=== PATIENT | female | born 1985 | race Caucasian/White ===

== ENCOUNTER 2020-04-06 21:38 | Emergency (ER) | payer MEDICARE, MEDICAID ==
--- NOTE | 2020-04-06 22:32 | EDM.PDOC ---
ED HPI GENERAL MEDICAL PROBLEM - General Chief Complaint: General Stated Complaint: PAIN IN BACK RT SIDE OF HEAD Time Seen by Provider: 04/06/20 22:24 Source of Information: Reports: Patient, RN Notes Reviewed History Limitations: Reports: No Limitations - History of Present Illness INITIAL COMMENTS - FREE TEXT/NARRATIVE: 34-year-old female presents emergency department a complaint of headache, she does have a history of migraines she states this is different than her migraines in the past she has no nausea no photophobia no phonophobia she describes this as a sharp stabbing headache back of her head right side started yesterday she has not gotten any relief from naproxen Right Head Pain Score (Numeric/FACES): 8 - Related Data Allergies Allergy/AdvReac Type Severity Reaction Status Date / Time adhesive tape Allergy Rash Verified 04/06/20 22:08 gabapentin Allergy Facial Verified 04/06/20 22:08 Swelling oxycodone Allergy Headache Verified 04/06/20 22:08 pregabalin [From Lyrica] Allergy Depression Verified 04/06/20 22:08 soy Allergy Hives Verified 04/06/20 22:08 tramadol Allergy Headache Verified 04/06/20 22:08 Home Meds: Home Meds Ascorbic Acid [Vitamin C] 1,000 mg PO BID 04/06/20 [History] Cholecalciferol (Vitamin D3) [Vitamin D3] 2,000 unit PO DAILY 04/06/20 [History] FLUoxetine HCl [Fluoxetine] 40 mg PO DAILY 04/06/20 [History] Magnesium Oxide 500 mg PO DAILY 04/06/20 [History] Omeprazole 20 mg PO ONETIME 04/06/20 [History] Phentermine HCl 15 mg PO DAILY 04/06/20 [History] Topiramate 50 mg PO BID 04/06/20 [History] Past Medical History HEENT History: Reports: Impaired Vision Genitourinary History: Reports: Renal Calculus 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: Musculoskeletal History: Reports: Back Pain, Chronic, Neck Pain, Chronic Neurological History: Reports: Migraines Psychiatric History: Reports: Anxiety, Depression Endocrine/Metabolic History: Reports: Obesity/BMI 30+ - Past Surgical History Head Surgeries/Procedures: Reports: None HEENT Surgical History: Reports: Tonsillectomy GI Surgical History: Reports: Cholecystectomy Female Surgical History: Reports: D&C Endocrine Surgical History: Reports: None Neurological Surgical History: Reports: Lumbar Spine, Spinal Fusion Musculoskeletal Surgical History: Reports: Shoulder Surgery Dermatological Surgical History: Reports: None Social & Family History - Tobacco Use Smoking Status *Q: Former Smoker Used Tobacco, but Quit: Yes Month/Year Tobacco Last Used: 2017 Second Hand Smoke Exposure: No - Caffeine Use Caffeine Use: Reports: Energy Drinks, Soda, Tea - Recreational Drug Use Recreational Drug Use: No - Living Situation & Occupation Living situation: Reports: Single, with Family (lives with 15 month old son in [place], [place].) Occupation: Disabled ED ROS GENERAL - Review of Systems Review Of Systems: See Below Constitutional: Denies: Fever, Chills HEENT: Denies: Ear Pain, Eye Pain Respiratory: Reports: No Symptoms Cardiovascular: Reports: No Symptoms GI/Abdominal: Reports: No Symptoms Neurological: Reports: Headache ED EXAM, GENERAL - Physical Exam Exam: See Below Exam Limited By: No Limitations General Appearance: Alert, WD/WN, No Apparent Distress Eye Exam: Bilateral Eye: EOMI, Normal Fundi, Normal Inspection, PERRL Respiratory/Chest: No Respiratory Distress Course - Vital Signs Last Recorded V/S: Last Vital Signs Temp 97.7 F 04/06/20 22:10 Pulse 56 L 04/07/20 01:22 Resp 14 04/07/20 01:22 BP 123/77 04/07/20 01:22 Pulse Ox 97 04/07/20 01:22 - Orders/Labs/Meds Orders: Active Orders 24 hr Category Date Time Status Peripheral IV Care [RC] . DIRECTED Care 04/06/20 23:40 Active Sodium Chloride 0.9% [Saline Flush] Med 04/06/20 23:40 Active 10 ml FLUSH ASDIRECTED PRN Peripheral IV Insertion Adult [OM.PC] Urgent Oth 04/06/20 23:39 Ordered Medication Orders Sodium Chloride (Saline Flush) 10 ml FLUSH ASDIRECTED PRN PRN Reason: Keep Vein Open Last Admin: 04/07/20 00:09 Dose: 10 ml Meds: Medications Generic Name Dose Route Start Last Admin Trade Name Freq PRN Reason Stop Dose Admin Sodium Chloride 10 ml 04/06/20 23:40 04/07/20 00:09 Saline Flush FLUSH 10 ml ASDIRECTED PRN Administration Keep Vein Open Discontinued Medications Generic Name Dose Route Start Last Admin Trade Name Freq PRN Reason Stop Dose Admin Dexamethasone 4 mg 04/07/20 01:09 04/07/20 01:17 Dexamethasone IVPUSH 04/07/20 01:10 4 mg ONETIME ONE Administration Diphenhydramine HCl 50 mg 04/06/20 23:40 04/07/20 00:09 Benadryl IVPUSH 04/06/20 23:41 50 mg ONETIME ONE Administration Haloperidol Lactate 10 mg 04/07/20 01:09 04/07/20 01:16 Haldol IVPUSH 04/07/20 01:10 10 mg ONETIME ONE Administration Lactated Ringer's 1,000 mls @ 999 mls/hr 04/06/20 23:39 04/07/20 00:07 Ringers, Lactated IV 04/07/20 00:39 999 mls/hr BOLUS ONE Administration Lactated Ringer's 1,000 mls @ 999 mls/hr 04/07/20 01:08 04/07/20 01:16 Ringers, Lactated IV 04/07/20 02:08 999 mls/hr BOLUS ONE Administration Ketorolac Tromethamine 30 mg 04/06/20 23:39 04/07/20 00:08 Toradol IVPUSH 04/06/20 23:40 30 mg ONETIME ONE Administration Prochlorperazine Edisylate 5 mg 04/06/20 23:40 04/07/20 00:08 Compazine IVPUSH 04/06/20 23:41 5 mg ONETIME ONE Administration Departure - Departure Time of Disposition: 02:13 Disposition: Home, Self-Care 01 Condition: Fair Clinical Impression: Headache Qualifiers: Headache type: unspecified Headache chronicity pattern: acute headache Intractability: not intractable Qualified Code(s): R51 - Headache - Discharge Information Instructions: General Headache Without Cause Referrals: PCP,None [Primary Care Provider] - Forms: ED Department Discharge Additional Instructions: Continue with regular medications, please followup with your primary care provider in 3-5 days if not better, please call return to the emergency department with worsening of symptoms. Sepsis Event Note - Evaluation Sepsis Screening Result: No Definite Risk - Focused Exam Vital Signs: Vital Signs Temp Pulse Resp BP Pulse Ox 04/07/20 01:22 56 L 14 123/77 97 04/07/20 00:52 49 L 15 135/82 100 05/28/20 00:13 60 14 143/81 H 100 04/06/20 22:10 97.7 F 57 L 16 133/83 100 04/06/20 21:56 97.7 F 57 L 16 133/83 100 Date Exam was Performed: 04/07/20 Time Exam was Performed: 02:11 - My Orders Last 24 Hours: My Active Orders 04/06/20 23:39 Peripheral IV Insertion Adult [OM.PC] Urgent 04/06/20 23:40 Peripheral IV Care [RC] . DIRECTED Sodium Chloride 0.9% [Saline Flush] 10 ml FLUSH ASDIRECTED PRN - Assessment/Plan Last 24 Hours: My Active Orders 04/06/20 23:39 Peripheral IV Insertion Adult [OM.PC] Urgent 04/06/20 23:40 Peripheral IV Care [RC] . DIRECTED Sodium Chloride 0.9% [Saline Flush] 10 ml FLUSH ASDIRECTED PRN Plan: Assessment Acuity = acute Site and laterality = headache Etiology = unknown Manifestations = none Location of injury = Home Lab values = CT scan of the head shows no acute process Plan Had 50% improvement combination Toradol, Compazine, Haldol, Benadryl and dexamethasone with 2 L of fluid follow-up primary care 3 to 5 days if not better This note was dictated using [employer] voice recognition software please call with any questions on syntax or grammar.
--- NOTE | 2020-04-06 23:34 | CRLCT ---
INDICATION: New stabbing headache. COMPARISON: None. TECHNIQUE: CT of the head without IV contrast. FINDINGS: No intracranial hemorrhage, mass effect, or evidence of acute infarct. No midline shift. No abnormal extra-axial fluid collections. Normal caliber ventricular system. The visualized paranasal sinuses and mastoid air cells are clear. No acute fracture. Soft tissues are unremarkable. IMPRESSION: : No acute intracranial findings. Please note that all CT scans at this facility use dose modulation, iterative reconstruction, and/or weight-based dosing when appropriate to reduce radiation dose to as low as reasonably achievable. Dictated by Mandy Damon MD @ Apr 06 2020 11:27PM Signed by Dr. Mandy Damon @ Apr 06 2020 11:32PM
[2020-04-06] MEDS ORDERED: Lactated Ringers 1,000 ML IV ONE (23:39)
[2020-04-06] MEDS ORDERED: Ketorolac 30 MG/ML SDV IVPUSH ONE (23:39)
[2020-04-06] MEDS ORDERED: diphenhydrAMINE 50 MG/ML SDV IVPUSH ONE (23:40)
[2020-04-06] MEDS ORDERED: Sodium Chloride 0.9% 10 ML Syringe FLUSH PRN (23:40)
[2020-04-06] MEDS ORDERED: Prochlorperazine 10 MG/2 ML SDV IVPUSH ONE (23:40)
[2020-04-07] MEDS ORDERED: Lactated Ringers 1,000 ML IV ONE (01:08)
[2020-04-07] MEDS ORDERED: Dexamethasone 4 MG/ML SDV IVPUSH ONE (01:09)
[2020-04-07] MEDS ORDERED: Haloperidol Lactate 5 MG/ML SDV IVPUSH ONE (01:09)
== END 2020-04-07 02:26 | disposition home or self-care (01) ==
LOC: JP.ED 21:38
DX: R51 Headache (principal); Z91.048 Other nonmedicinal substance allergy status; Z88.5 Allergy status to narcotic agent; Z91.018 Allergy to other foods; Z88.8 Allergy status to other drugs, medicaments and biological substances; F41.9 Anxiety disorder, unspecified; F32.9 Major depressive disorder, single episode, unspecified; E66.9 Obesity, unspecified; Z68.30 Body mass index [BMI] 30.0-30.9, adult; Z87.891 Personal history of nicotine dependence
CPT/HCPCS: 70450; 96374; 96375; 99284; J0780; J1100; J1200; J1630; J1885; J7120

== ENCOUNTER 2020-04-09 18:15 | Emergency (ER) | payer MEDICARE, MEDICAID ==
[2020-04-09] MEDS ORDERED: Diazepam 5 MG Tab PO ONE (18:52)
--- NOTE | 2020-04-09 18:53 | EDM.PDOC ---
ED HPI GENERAL MEDICAL PROBLEM - General Chief Complaint: ENT Problem Stated Complaint: PAIN RIGHT SIDE OF HEAD Time Seen by Provider: 04/09/20 18:32 Source of Information: Reports: Patient, RN Notes Reviewed History Limitations: Reports: No Limitations - History of Present Illness INITIAL COMMENTS - FREE TEXT/NARRATIVE: Cee presents today with complaints of headache, right ear pain, right head pain and dizziness. She reports increased pain to right ear and increase of dizziness since last ER visit on 04/06/2020. She denies any injury or trauma to the head or ear. She denies fever, chills, nausea, vomiting or other concerns. Right Ear Pain Score (Numeric/FACES): 9 - Related Data Allergies Allergy/AdvReac Type Severity Reaction Status Date / Time adhesive tape Allergy Rash Verified 04/06/20 22:08 gabapentin Allergy Facial Verified 04/06/20 22:08 Swelling oxycodone Allergy Headache Verified 04/06/20 22:08 pregabalin [From Lyrica] Allergy Depression Verified 04/06/20 22:08 soy Allergy Hives Verified 04/06/20 22:08 tramadol Allergy Headache Verified 04/06/20 22:08 Home Meds: Home Meds Ascorbic Acid [Vitamin C] 1,000 mg PO BID 04/06/20 [History] Cholecalciferol (Vitamin D3) [Vitamin D3] 2,000 unit PO DAILY 04/06/20 [History] FLUoxetine HCl [Fluoxetine] 40 mg PO DAILY 04/06/20 [History] Magnesium Oxide 500 mg PO DAILY 04/06/20 [History] Omeprazole 20 mg PO ONETIME 04/06/20 [History] Phentermine HCl 15 mg PO DAILY 04/06/20 [History] Topiramate 50 mg PO BID 04/06/20 [History] Past Medical History HEENT History: Reports: Impaired Vision Gastrointestinal History: Reports: None Genitourinary History: Reports: Renal Calculus 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: Musculoskeletal History: Reports: Back Pain, Chronic, Neck Pain, Chronic Neurological History: Reports: Migraines Psychiatric History: Reports: Anxiety, Depression Endocrine/Metabolic History: Reports: Obesity/BMI 30+ - Past Surgical History Head Surgeries/Procedures: Reports: None HEENT Surgical History: Reports: Tonsillectomy GI Surgical History: Reports: Cholecystectomy Female Surgical History: Reports: D&C Endocrine Surgical History: Reports: None Neurological Surgical History: Reports: Lumbar Spine, Spinal Fusion Musculoskeletal Surgical History: Reports: Shoulder Surgery Dermatological Surgical History: Reports: None Social & Family History - Tobacco Use Smoking Status *Q: Never Smoker - Caffeine Use Caffeine Use: Reports: Soda - Recreational Drug Use Recreational Drug Use: No - Living Situation & Occupation Living situation: Reports: Single, with Family (lives with 15 month old son in [place], [place].) Occupation: Disabled ED ROS ENT - Review of Systems Review Of Systems: See Below Constitutional: Reports: No Symptoms HEENT: Reports: Ear Pain, Vertigo, Other (Pain to right ear, right side of neck and posterior head. ). Denies: Dental Pain, Ear Discharge, Hearing Loss, Nose Pain, Sinus Problem, Throat Pain, Throat Swelling, Vision Change Respiratory: Reports: No Symptoms Cardiovascular: Reports: No Symptoms Endocrine: Reports: No Symptoms GI/Abdominal: Reports: No Symptoms : Reports: No Symptoms Musculoskeletal: Reports: No Symptoms Skin: Reports: No Symptoms Neurological: Reports: Dizziness, Headache, Other (dizziness with change in position or turning head) Psychiatric: Reports: No Symptoms Hematologic/Lymphatic: Reports: No Symptoms ED EXAM, ENT - Physical Exam Exam: See Below Exam Limited By: No Limitations General Appearance: Alert, WD/WN, No Apparent Distress Eye Exam: Bilateral Eye: EOMI, Normal Inspection, Nystagmus (slight with change in position), PERRL Ears: Hearing Grossly Normal, Auricular Tenderness, TM Bulging, TM Dullness, TM Erythema, TM Fluid, Other (Right TM bulging, dull effusion present, erythema. Left TM normal. ). No: Mastoid Tenderness, Canal Blood, Canal Swelling Nose: Normal Inspection, Normal Mucousa, No Blood Mouth/Throat: Normal Inspection, Normal Gums, Normal Lips, Normal Oropharynx. No: Dental Pain, Oral Ulcers, Throat Pain, Tonsillar Erythema, Tonsillar Exudates, Uvular Deviation, Uvular Edema Head: Atraumatic, Normocephalic Neck: Normal Inspection, Supple, Full Range of Motion, Other (tenderness to right neck near right ear). No: Limited Range of Motion, Lymphadenopathy (R), Lymphadenopathy (L) Respiratory/Chest: No Respiratory Distress, Lungs Clear, Normal Breath Sounds, No Accessory Muscle Use, Chest Non-Tender Cardiovascular: Normal Peripheral Pulses, Regular Rate, Rhythm, No Edema, No Gallop, No Murmur, No Rub Back: Normal Inspection, Full Range of Motion. No: CVA Tenderness (R), CVA Tenderness (L) Extremities: Normal Inspection, Normal Range of Motion, Non-Tender, No Pedal Edema, Normal Capillary Refill Neurological: Alert, Oriented, CN II-XII Intact, Normal Cognition, Normal Gait, Normal Reflexes, No Motor/Sensory Deficits Psychiatric: Normal Affect, Normal Mood Skin: Warm, Dry, Intact, Normal Color, No Rash Course - Vital Signs Last Recorded V/S: Last Vital Signs Temp 36.2 C 04/09/20 18:29 Pulse 66 04/09/20 19:29 Resp 16 04/09/20 18:29 BP 122/76 04/09/20 19:29 Pulse Ox 98 04/09/20 19:29 - Orders/Labs/Meds Meds: Medications Discontinued Medications Generic Name Dose Route Start Last Admin Trade Name Humphreyq PRN Reason Stop Dose Admin Diazepam 5 mg 04/09/20 18:52 04/09/20 18:56 Valium. PO 04/09/20 18:53 5 mg ONETIME ONE Administration Patient reports improvement after diazepam. Departure - Departure Time of Disposition: 19:39 Disposition: Home, Self-Care 01 Condition: Good Clinical Impression: Otitis media of right ear, Vertigo - Discharge Information *PRESCRIPTION DRUG MONITORING PROGRAM REVIEWED*: Not Applicable *COPY OF PRESCRIPTION DRUG MONITORING REPORT IN PATIENT JADEN: Not Applicable Instructions: Otitis Media, Adult, [id number], Dizziness Referrals: PCP,None [Primary Care Provider] - Forms: ED Department Discharge Additional Instructions: Stay hydrated by drinking plenty of fluid. Take amoxicillin/clavulanate twice per day for 10 days for ear infection. Take meclizine 25 mg three times a day for dizziness. Follow up with primary in 7 to 10 days for recheck Return for worsening, issues or concerns. Sepsis Event Note - Evaluation Sepsis Screening Result: No Definite Risk - Focused Exam Vital Signs: Vital Signs Temp Pulse Resp BP Pulse Ox 04/09/20 19:29 66 122/76 98 04/09/20 18:29 36.2 C 65 16 133/77 99 04/09/20 18:25 36.2 C 65 16 133/77 99 Date Exam was Performed: 04/09/20 Time Exam was Performed: 21:39 - Assessment/Plan Assessment:: Otitis media right Vertigo Plan: Stay hydrated by drinking plenty of fluid. Take amoxicillin/clavulanate twice per day for 10 days for ear infection. Take meclizine 25 mg three times a day for dizziness. Follow up with primary in 7 to 10 days for recheck Return for worsening, issues or concerns.
== END 2020-04-09 19:39 | disposition home or self-care (01) ==
LOC: JP.ED 18:15
DX: H66.91 Otitis media, unspecified, right ear (principal); F41.9 Anxiety disorder, unspecified; F32.9 Major depressive disorder, single episode, unspecified; G43.909 Migraine, unspecified, not intractable, without status migrainosus; E66.9 Obesity, unspecified; Z68.30 Body mass index [BMI] 30.0-30.9, adult; Z91.048 Other nonmedicinal substance allergy status; Z88.8 Allergy status to other drugs, medicaments and biological substances; Z91.018 Allergy to other foods; Z88.5 Allergy status to narcotic agent; Z79.899 Other long term (current) drug therapy
CPT/HCPCS: 99283; A9270

== ENCOUNTER 2020-05-25 17:53 | Emergency (ER) | payer MEDICARE, MEDICAID ==
--- NOTE | 2020-05-25 18:53 | EDM.PDOC ---
ED HPI GENERAL MEDICAL PROBLEM - General Chief Complaint: Chest Pain Stated Complaint: PAIN IN RIBS Time Seen by Provider: 05/25/20 18:40 Source of Information: Reports: Patient History Limitations: Reports: No Limitations - History of Present Illness INITIAL COMMENTS - FREE TEXT/NARRATIVE: 34-year-old female who fell on Saturday, 4 days ago striking the left side of her chest wall. She is been having significant pain with breathing since that time but seems worse today so she wanted to check. Denies abdominal pain, no head or neck injury. Pain is localized to the left lateral chest. She denies any shortness of breath, but does have marked pain with breathing. Onset: Sudden Duration: Day(s): (4 days ago) Location: Reports: Chest (Left lateral chest wall) Worsens with: Reports: Breathing, Movement Associated Symptoms: Reports: No Other Symptoms - Related Data Allergies Allergy/AdvReac Type Severity Reaction Status Date / Time adhesive tape Allergy Rash Verified 04/06/20 22:08 duloxetine [From Cymbalta] Allergy Cannot Verified 05/25/20 18:31 Remember gabapentin Allergy Facial Verified 04/06/20 22:08 Swelling oxycodone Allergy Headache Verified 04/06/20 22:08 pregabalin [From Lyrica] Allergy Depression Verified 04/06/20 22:08 soy Allergy Hives Verified 04/06/20 22:08 tramadol Allergy Headache Verified 04/06/20 22:08 Home Meds: Home Meds Ascorbic Acid [Vitamin C] 1,000 mg PO BID 04/06/20 [History] Cholecalciferol (Vitamin D3) [Vitamin D3] 2,000 unit PO DAILY 04/06/20 [History] Magnesium Oxide 500 mg PO DAILY 04/06/20 [History] Omeprazole 20 mg PO ONETIME 04/06/20 [History] Phentermine HCl 15 mg PO DAILY 04/06/20 [History] Topiramate 50 mg PO BID 04/06/20 [History] Calcium Citrate/Vitamin D2 [Samuel-Citrate Plus Vitamin D Tab] 1 tab PO DAILY 05/25/20 [History] busPIRone [Buspar] 1 mg PO BID 05/25/20 [History] Past Medical History HEENT History: Reports: Impaired Vision Cardiovascular History: Reports: Other (See Below) Other Cardiovascular History: positional orthostatic tachycardic syndrome Gastrointestinal History: Reports: None Genitourinary History: Reports: Renal Calculus 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: Musculoskeletal History: Reports: Back Pain, Chronic, Neck Pain, Chronic Neurological History: Reports: Migraines Psychiatric History: Reports: Anxiety, Depression Endocrine/Metabolic History: Reports: Obesity/BMI 30+ - Past Surgical History Head Surgeries/Procedures: Reports: None HEENT Surgical History: Reports: Tonsillectomy GI Surgical History: Reports: Cholecystectomy Female Surgical History: Reports: D&C, Tubal Ligation Endocrine Surgical History: Reports: None Neurological Surgical History: Reports: Lumbar Spine, Spinal Fusion Musculoskeletal Surgical History: Reports: Shoulder Surgery Dermatological Surgical History: Reports: None Social & Family History - Tobacco Use Smoking Status *Q: Former Smoker Years of Tobacco use: 15 Used Tobacco, but Quit: Yes Month/Year Tobacco Last Used: 11/16/2017 - Caffeine Use Caffeine Use: Reports: Coffee, Soda - Recreational Drug Use Recreational Drug Use: No - Living Situation & Occupation Living situation: Reports: Single, with Family (lives with 15 month old son in [place], [place].) Occupation: Disabled ED ROS GENERAL - Review of Systems Review Of Systems: See Below Constitutional: Denies: Fever, Chills Respiratory: Reports: Pleuritic Chest Pain. Denies: Shortness of Breath Cardiovascular: Reports: No Symptoms GI/Abdominal: Reports: No Symptoms Skin: Denies: Bruising Neurological: Reports: No Symptoms Psychiatric: Reports: No Symptoms ED EXAM, GENERAL - Physical Exam Exam: See Below Exam Limited By: No Limitations General Appearance: Alert, Mild Distress (Patient does look fairly uncomfortable) Head: Atraumatic Neck: Non-Tender Respiratory/Chest: Lungs Clear, Other (Significant left lateral chest wall tenderness to palpation but no crepitus felt) Cardiovascular: Regular Rate, Rhythm GI/Abdominal: Soft, Non-Tender Neurological: Alert, Oriented Psychiatric: Normal Affect, Normal Mood Skin Exam: Warm, Dry Course - Vital Signs Last Recorded V/S: Last Vital Signs Temp 97.9 F 05/25/20 18:45 Pulse 83 05/25/20 18:45 Resp 18 05/25/20 18:45 BP 109/80 05/25/20 18:45 Pulse Ox 95 05/25/20 18:45 - Orders/Labs/Meds Orders: Active Orders 24 hr Category Date Time Status Chest 2V [CR] Routine Exams 05/25/20 18:50 Taken - Re-Assessments/Exams Free Text/Narrative Re-Assessment/Exam: 05/25/20 18:57 A 2 view chest x-ray was ordered. 05/25/20 19:23 2 view chest x-ray is normal. 05/25/20 19:35 Explained the patient that her chest x-ray is normal, she was given 6 hydrocodone to help with pain control but needs to increase activity as tolerated. She will not take anti-inflammatories because she bruises easily. She should recheck with her primary provider in 3 to 4 days if not improving satisfactorily, or return sooner if worsening or concerns. Departure - Departure Time of Disposition: 20:00 Disposition: Home, Self-Care 01 Clinical Impression: Contusion of left chest wall - Discharge Information Instructions: Contusion, [id number] Referrals: PCP,None [Primary Care Provider] - Forms: ED Department Discharge Care Plan Goals: I would recommend a regular dose of naproxen for pain and add stronger pain medications as needed. Increase activity as tolerated and recheck in 2 to 3 days if not improving satisfactorily. Sepsis Event Note (ED) - Evaluation Sepsis Screening Result: No Definite Risk - Focused Exam Vital Signs: Vital Signs Temp Pulse Resp BP Pulse Ox 05/25/20 18:45 97.9 F 83 18 109/80 95 05/25/20 18:15 97.9 F 96 18 112/82 98 - My Orders Last 24 Hours: My Active Orders 05/25/20 18:50 Chest 2V [CR] Routine - Assessment/Plan Last 24 Hours: My Active Orders 05/25/20 18:50 Chest 2V [CR] Routine
--- NOTE | 2020-05-26 08:58 | CR ---
CHEST: 2 view CLINICAL HISTORY:Dyspnea COMPARISON:None FINDINGS: The heart size, pulmonary vascularity and hilar structures are normal. No infiltrate effusion or pneumothorax is seen. IMPRESSION: No acute cardiopulmonary process.
== END 2020-05-25 20:01 | disposition home or self-care (01) ==
LOC: JP.ED 17:53
DX: S20.212A Contusion of left front wall of thorax, initial encounter (principal); F41.9 Anxiety disorder, unspecified; E66.9 Obesity, unspecified; Z68.28 Body mass index [BMI] 28.0-28.9, adult; Z88.8 Allergy status to other drugs, medicaments and biological substances; Z91.048 Other nonmedicinal substance allergy status; Z88.5 Allergy status to narcotic agent; Z91.09 Other allergy status, other than to drugs and biological substances; Z87.891 Personal history of nicotine dependence; W22.8XXA Striking against or struck by other objects, initial encounter
CPT/HCPCS: 71046; 71046-26; 99284-25

== ENCOUNTER 2020-06-01 17:53 | Emergency (ER) | payer MEDICARE, MEDICAID ==
[2020-06-01] MEDS ORDERED: Ondansetron 4 MG Tab.DIS PO ONE (18:50)
--- NOTE | 2020-06-01 19:05 | EDM.PDOC ---
ED HPI GENERAL MEDICAL PROBLEM - General Chief Complaint: Chest Pain Stated Complaint: CHEST PAIN Time Seen by Provider: 06/01/20 18:40 Source of Information: Reports: Patient, Old Records, RN, RN Notes Reviewed History Limitations: Reports: No Limitations - History of Present Illness INITIAL COMMENTS - FREE TEXT/NARRATIVE: Pt arrived private vehicle with young son. New complaints of right upper chest pain (above right breast) while driving to town for groceries. Indicates hurts with and without breathing. Pain 5/10. Pt indicates is taking a new medication (Florinef) for POTS. Started new medication yesterday am. Denies trauma, fall, or injury. Denies radiation to R arm, jaw, or diaphoresis. Pt is able to provide H&P and answer in full sentences. Onset: Today Onset Date: 06/01/20 Onset Time: 18:00 Duration: Hour(s):, Constant Location: Reports: Chest Quality: Reports: Ache, Pressure Severity: Moderate Improves with: Reports: None Worsens with: Reports: Breathing, Movement Associated Symptoms: Reports: Nausea/Vomiting Chest Pain Score (Numeric/FACES): 5 - Related Data Allergies Allergy/AdvReac Type Severity Reaction Status Date / Time adhesive tape Allergy Rash Verified 06/01/20 18:20 duloxetine [From Cymbalta] Allergy Cannot Verified 06/01/20 18:20 Remember gabapentin Allergy Facial Verified 06/01/20 18:20 Swelling oxycodone Allergy Headache Verified 06/01/20 18:20 pregabalin [From Lyrica] Allergy Depression Verified 06/01/20 18:20 soy Allergy Hives Verified 06/01/20 18:20 tramadol Allergy Headache Verified 06/01/20 18:20 Home Meds: Home Meds Ascorbic Acid [Vitamin C] 1,000 mg PO BID 04/06/20 [History] Cholecalciferol (Vitamin D3) [Vitamin D3] 2,000 unit PO DAILY 04/06/20 [History] Magnesium Oxide 500 mg PO DAILY 04/06/20 [History] Omeprazole 20 mg PO ONETIME 04/06/20 [History] Phentermine HCl 15 mg PO DAILY 04/06/20 [History] Topiramate 50 mg PO BID 04/06/20 [History] Calcium Citrate/Vitamin D2 [Samuel-Citrate Plus Vitamin D Tab] 1 tab PO DAILY 05/25/20 [History] busPIRone [Buspar] 10 mg PO BID 05/25/20 [History] Fludrocortisone [Florinef] 0.1 mg PO DAILY 06/01/20 [History] Hydrocodone/Acetaminophen [Hydrocodon-Acetaminophen 5-325] 1 tab PO ASDIRECTED 06/01/20 [History] Past Medical History HEENT History: Reports: Impaired Vision Cardiovascular History: Reports: Other (See Below) Other Cardiovascular History: positional orthostatic tachycardic syndrome Gastrointestinal History: Reports: None Genitourinary History: Reports: Renal Calculus 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: Musculoskeletal History: Reports: Back Pain, Chronic, Neck Pain, Chronic Neurological History: Reports: Migraines Psychiatric History: Reports: Anxiety, Depression Endocrine/Metabolic History: Reports: Obesity/BMI 30+ - Past Surgical History Head Surgeries/Procedures: Reports: None HEENT Surgical History: Reports: Tonsillectomy GI Surgical History: Reports: Cholecystectomy Female Surgical History: Reports: D&C, Tubal Ligation Neurological Surgical History: Reports: Lumbar Spine, Spinal Fusion Musculoskeletal Surgical History: Reports: Shoulder Surgery Social & Family History - Tobacco Use Smoking Status *Q: Never Smoker - Caffeine Use Caffeine Use: Reports: None - Recreational Drug Use Recreational Drug Use: No - Living Situation & Occupation Living situation: Reports: Single, with Family (lives with 15 month old son in [place], [place].) Occupation: Disabled ED ROS GENERAL - Review of Systems Review Of Systems: See Below Constitutional: Reports: No Symptoms HEENT: Reports: No Symptoms Respiratory: Reports: Pleuritic Chest Pain (R upper chest ) Cardiovascular: Reports: No Symptoms Endocrine: Reports: No Symptoms GI/Abdominal: Reports: No Symptoms : Reports: No Symptoms Musculoskeletal: Reports: No Symptoms Skin: Reports: No Symptoms Neurological: Reports: No Symptoms Psychiatric: Reports: Anxiety Hematologic/Lymphatic: Reports: No Symptoms Immunologic: Reports: No Symptoms ED EXAM, GENERAL - Physical Exam Exam: See Below Exam Limited By: No Limitations General Appearance: Alert, WD/WN, Anxious, Mild Distress (Anxious ) Head: Normocephalic Neck: Normal Inspection Respiratory/Chest: Normal Breath Sounds, No Accessory Muscle Use, Other (Chest wall pain) Cardiovascular: Normal Peripheral Pulses, Regular Rate, Rhythm, No Edema, No Gallop, No Murmur, No Rub, Other (Chest wall pain ) Peripheral Pulses: 2+: Radial (L), Radial (R), Dorsalis Pedis (L), Dorsalis Pedis (R) GI/Abdominal: Normal Bowel Sounds, Soft, Non-Tender, No Organomegaly, No Disten tion (Karen out), Other (Nausea. No vomiting ) (Female) Exam: Deferred Rectal (Female) Exam: Deferred Back Exam: Normal Inspection, Full Range of Motion Extremities: Normal Inspection, Normal Range of Motion, Normal Capillary Refill Neurological: Alert, Oriented, CN II-XII Intact, Normal Cognition Psychiatric: Anxious Skin Exam: Warm, Dry, Intact, Normal Color, No Rash Lymphatic: No Adenopathy EKG INTERPRETATION EKG Date: 06/01/20 Rhythm: NSR Rate (Beats/Min): 52 Course - Vital Signs Last Recorded V/S: Last Vital Signs Temp 36.0 C L 06/01/20 18:19 Pulse 50 L 06/01/20 19:25 Resp 13 06/01/20 19:25 BP 109/62 06/01/20 19:25 Pulse Ox 98 06/01/20 19:25 - Orders/Labs/Meds Orders: Active Orders 24 hr Category Date Time Status EKG Documentation Completion [RC] ASDIRECTED Care 06/01/20 17:55 Active Chest 2V [CR] Stat Exams 06/01/20 18:51 Taken EKG 12 Lead [EK] Routine Ther 06/01/20 17:54 Ordered Labs: Laboratory Tests 06/01/20 06/01/20 06/01/20 Range/Units 19:02 19:02 19:02 WBC 6.5 (4.5-11.0) K/uL RBC 3.99 (3.30-5.50) M/uL Hgb 12.1 (12.0-15.0) g/dL Hct 36.1 (36.0-48.0) % MCV 91 (80-98) fL MCH 30 (27-31) pg MCHC 34 (32-36) % Plt Count 221 (150-400) K/uL Neut % (Auto) 56 (36-66) % Lymph % (Auto) 34 (24-44) % [place] % (Auto) 7 H (2-6) % Eos % (Auto) 2 (2-4) % Baso % (Auto) 0 (0-1) % D-Dimer, Quantitative 294 (0.0-400.0) ng/mL Sodium 146 (140-148) mmol/L Potassium 3.2 L (3.6-5.2) mmol/L Chloride 111 H (100-108) mmol/L Carbon Dioxide 25 (21-32) mmol/L Anion Gap 13.2 (5.0-14.0) mmol/L BUN 8 (7-18) mg/dL Creatinine 1.0 (0.6-1.0) mg/dL Est Cr Clr Drug Dosing 72.68 mL/min Estimated GFR (MDRD) > 60 (>60) Glucose 89 (74-106) mg/dL Calcium 8.4 L (8.5-10.1) mg/dL Total Bilirubin 0.6 (0.2-1.0) mg/dL AST 12 L (15-37) U/L ALT 15 (12-78) U/L Alkaline Phosphatase 67 (46-116) U/L Troponin I < 0.017 (0.000-0.056) ng/mL Total Protein 5.7 L (6.4-8.2) g/dL Albumin 3.4 (3.4-5.0) g/dL Globulin 2.3 (2.3-3.5) g/dL Albumin/Globulin Ratio 1.5 (1.2-2.2) Meds: Medications Discontinued Medications Generic Name Dose Route Start Last Admin Trade Name Freq PRN Reason Stop Dose Admin Ondansetron HCl 4 mg 06/01/20 18:50 06/01/20 19:00 Zofran Odt PO 06/01/20 18:51 4 mg ONETIME ONE Administration Potassium Chloride 40 meq 06/01/20 19:39 Klor-Con M20 PO 06/01/20 19:40 ONETIME ONE - Re-Assessments/Exams Free Text/Narrative Re-Assessment/Exam: 06/01/20 19:08 Pt examined Orders for dx and meds placed EKG WNL 06/01/20 19:41 All labs and imaging reviewed. Will order 40 mEq PO KCL for 3.2. All other is neg. Prob f/u with pcp re: mally Departure - Departure Time of Disposition: 19:42 Disposition: Home, Self-Care 01 Condition: Good Clinical Impression: Pleuritic chest pain Instructions: Nonspecific Chest Pain, Adult, [id number], Pain Without a Known Cause Referrals: PCP,None [Primary Care Provider] - Forms: ED Department Discharge Additional Instructions: Please follow up with your provider in the morning regarding the medication you were started on yesterday. I would suggest not taking the medication in the morning until you speak with your doctor based on the possible symptomatology or reaction to the keith medication. . If your pain worsens or you develop shortness of breath, fever, chills, nausea, or vomiting, please return to the ER or call your provider. Sepsis Event Note (ED) - Evaluation Sepsis Screening Result: No Definite Risk - Focused Exam Vital Signs: Vital Signs Temp Pulse Resp BP Pulse Ox 06/01/20 19:25 50 L 13 109/62 98 06/01/20 18:44 50 L 106/61 06/01/20 18:19 36.0 C L 62 20 121/62 99 06/01/20 18:07 36.0 C L 62 20 121/62 99 - Problem List & Annotations (1) Pleuritic chest pain SNOMED Code(s): 9482097 Code(s): R07.81 - PLEURODYNIA Status: Acute Priority: Medium Current Visit: Yes - Problem List Review Problem List Initiated/Reviewed/Updated: Yes - My Orders Last 24 Hours: My Active Orders 06/01/20 18:51 Chest 2V [CR] Stat - Assessment/Plan Admission H&P: Please use this note as an admission H&P Last 24 Hours: My Active Orders 06/01/20 18:51 Chest 2V [CR] Stat Plan: Please follow up with your provider in the morning regarding the medication you were started on yesterday. I would suggest not taking the medication in the morning until you speak with your doctor based on the possible symptomatology or reaction to the keith medication. . If your pain worsens or you develop shortness of breath, fever, chills, nausea, or vomiting, please return to the ER or call your provider.
[2020-06-01] MEDS ORDERED: Potassium Chloride 20 MEQ Tab.ER PO ONE (19:39)
--- NOTE | 2020-06-02 09:00 | CR ---
CHEST: 2 view CLINICAL HISTORY:Chest pain COMPARISON:05/25/2020 FINDINGS: The heart size, pulmonary vascularity and hilar structures are normal. No infiltrate effusion or pneumothorax is seen. IMPRESSION: No acute cardiopulmonary process.
== END 2020-06-01 20:20 | disposition home or self-care (01) ==
LOC: JP.ED 17:53
DX: R07.81 Pleurodynia (principal); F41.9 Anxiety disorder, unspecified; F32.9 Major depressive disorder, single episode, unspecified; E66.9 Obesity, unspecified; Z68.29 Body mass index [BMI] 29.0-29.9, adult; Z88.8 Allergy status to other drugs, medicaments and biological substances; Z88.5 Allergy status to narcotic agent; Z91.018 Allergy to other foods; Z79.899 Other long term (current) drug therapy; Z91.048 Other nonmedicinal substance allergy status
CPT/HCPCS: 36415; 71046; 80053; 84484; 85025; 85379; 93005; 99285; A9270; 93010

== ENCOUNTER 2020-07-20 19:54 | Emergency (ER) | payer MEDICARE, MEDICAID ==
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
== END 2020-07-20 21:30 | disposition home or self-care (01) ==
LOC: JP.ED 19:54
DX: K04.7 Periapical abscess without sinus (principal); F17.210 Nicotine dependence, cigarettes, uncomplicated; F41.9 Anxiety disorder, unspecified; F32.9 Major depressive disorder, single episode, unspecified; E66.9 Obesity, unspecified; Z91.048 Other nonmedicinal substance allergy status; Z88.8 Allergy status to other drugs, medicaments and biological substances; Z88.5 Allergy status to narcotic agent; Z91.018 Allergy to other foods; Z88.6 Allergy status to analgesic agent; Z79.899 Other long term (current) drug therapy; Z68.31 Body mass index [BMI] 31.0-31.9, adult
CPT/HCPCS: 99282

== ENCOUNTER 2020-08-25 22:41 | Emergency (ER) | payer MEDICARE, MEDICAID ==
[2020-08-25] MEDS ORDERED: Ketorolac 30 MG/ML SDV IM ONE (23:39)
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
[2020-08-26] MEDS ORDERED: Potassium Chloride 20 MEQ Tab.ER PO ONE (00:47)
--- NOTE | 2020-08-26 09:25 | CR ---
CHEST: 2 view CLINICAL HISTORY:Right-sided chest pain COMPARISON:May 2020 FINDINGS: The heart size, pulmonary vascularity and hilar structures are normal. No infiltrate effusion or pneumothorax is seen. IMPRESSION: No acute cardiopulmonary process.
== END 2020-08-26 00:58 | disposition home or self-care (01) ==
LOC: JP.ED 22:41
DX: S29.011A Strain of muscle and tendon of front wall of thorax, initial encounter (principal); M79.621 Pain in right upper arm; F41.9 Anxiety disorder, unspecified; E66.9 Obesity, unspecified; F17.210 Nicotine dependence, cigarettes, uncomplicated; Z79.899 Other long term (current) drug therapy; Z68.31 Body mass index [BMI] 31.0-31.9, adult; Z91.048 Other nonmedicinal substance allergy status; Z88.8 Allergy status to other drugs, medicaments and biological substances; Z88.5 Allergy status to narcotic agent; Z91.018 Allergy to other foods; X58.XXXA Exposure to other specified factors, initial encounter
CPT/HCPCS: 36415; 71046; 80048; 85025; 86140; 96372; 99285; A9270; J1885

== ENCOUNTER 2021-02-28 16:48 | Emergency (ER) | payer MEDICARE, MEDICAID ==
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
--- NOTE | 2021-03-01 09:00 | CR ---
Foot Comp Min 3V Lt CLINICAL HISTORY: Trauma FINDINGS: There is no acute fracture or dislocation within the foot. No destructive changes are present. IMPRESSION: No acute bony process.
== END 2021-02-28 18:09 | disposition home or self-care (01) ==
LOC: JP.ED 16:48
DX: S90.32XA Contusion of left foot, initial encounter (principal); E66.9 Obesity, unspecified; Z68.29 Body mass index [BMI] 29.0-29.9, adult; Z72.0 Tobacco use; Z88.5 Allergy status to narcotic agent; Z88.8 Allergy status to other drugs, medicaments and biological substances; Z91.018 Allergy to other foods; Z91.048 Other nonmedicinal substance allergy status; Z88.6 Allergy status to analgesic agent; Z79.899 Other long term (current) drug therapy; W20.8XXA Other cause of strike by thrown, projected or falling object, initial encounter
CPT/HCPCS: 73630-26-LT; 73630-LT; 99282; 99283-25

== ENCOUNTER 2021-03-17 17:27 | Emergency (ER) | payer MEDICARE, MEDICAID ==
[2021-03-17] MEDS ORDERED: Ketorolac 30 MG/ML SDV IVPUSH ONE (20:08)
[2021-03-17] MEDS ORDERED: Dexamethasone 4 MG/ML SDV IVPUSH ONE (20:09)
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
--- NOTE | 2021-03-20 09:35 | CR ---
CHEST: Portable 03/17/2021 at 7:37 PM CLINICAL HISTORY:Chest pain COMPARISON:2019 FINDINGS: The heart size, pulmonary vascularity and hilar structures are normal. No infiltrate effusion or pneumothorax is seen. IMPRESSION: No acute cardiopulmonary process.
== END 2021-03-17 21:52 | disposition home or self-care (01) ==
LOC: JP.ED 17:27
DX: U07.1 COVID-19 (principal); E66.9 Obesity, unspecified; Z68.28 Body mass index [BMI] 28.0-28.9, adult; Z88.8 Allergy status to other drugs, medicaments and biological substances; Z91.048 Other nonmedicinal substance allergy status; Z88.5 Allergy status to narcotic agent; Z79.899 Other long term (current) drug therapy; Z91.018 Allergy to other foods; Z72.0 Tobacco use
CPT/HCPCS: 36415; 71045; 80053; 84484; 85025; 85379; 86140; 93005; 96374; 96375; 99285; J1100; J1885; U0002; 71046; 99284

== ENCOUNTER 2021-09-30 20:26 | Emergency (ER) | payer MEDICARE, MEDICAID ==
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
== END 2021-09-30 21:24 | disposition home or self-care (01) ==
LOC: JP.ED 20:26
DX: K04.7 Periapical abscess without sinus (principal); K02.9 Dental caries, unspecified; E66.9 Obesity, unspecified; Z68.30 Body mass index [BMI] 30.0-30.9, adult; Z72.0 Tobacco use; Z88.8 Allergy status to other drugs, medicaments and biological substances; Z88.6 Allergy status to analgesic agent; Z91.018 Allergy to other foods; Z91.048 Other nonmedicinal substance allergy status; Z88.5 Allergy status to narcotic agent; Z79.899 Other long term (current) drug therapy
CPT/HCPCS: 99282

== ENCOUNTER 2022-09-13 19:08 | Emergency (ER) | payer MEDICARE, MEDICAID | END 2022-09-13 20:31 | disposition home or self-care (01) | LOC: JP.ED 19:08 | DX: M25.512 Pain in left shoulder (principal); H69.81 Other specified disorders of Eustachian tube, right ear; Z88.8 Allergy status to other drugs, medicaments and biological substances; Z91.048 Other nonmedicinal substance allergy status; Z88.5 Allergy status to narcotic agent; Z79.899 Other long term (current) drug therapy; Z90.49 Acquired absence of other specified parts of digestive tract | CPT/HCPCS: 99283 ==

== ENCOUNTER 2023-03-22 20:12 | Emergency (ER) | payer MEDICARE, MEDICAID ==
[2023-03-22] MEDS ORDERED: Ketorolac 15 MG/ML SDV IVPUSH STA (21:33)
[2023-03-22] MEDS ORDERED: diphenhydrAMINE 50 MG/ML SDV IVPUSH STA (21:33)
[2023-03-22] MEDS ORDERED: Prochlorperazine 10 MG/2 ML SDV IVPUSH STA (21:36)
[2023-03-22] MEDS ORDERED: Sodium Chloride 0.9% 1,000 ML IV STA (21:38)
[2023-03-22] MEDS ORDERED: Sodium Chloride 0.9% 1,000 ML IV SCH (21:45)
== END 2023-03-22 23:00 | disposition home or self-care (01) ==
LOC: JP.ED 20:12
DX: G43.909 Migraine, unspecified, not intractable, without status migrainosus (principal); E66.9 Obesity, unspecified; Z68.30 Body mass index [BMI] 30.0-30.9, adult; Z86.16 Personal history of COVID-19; Z88.5 Allergy status to narcotic agent; Z91.048 Other nonmedicinal substance allergy status; Z88.8 Allergy status to other drugs, medicaments and biological substances; Z79.899 Other long term (current) drug therapy
CPT/HCPCS: 96361; 96374; 96375; 99283; J0780; J1200; J1885; J7030

== ENCOUNTER 2023-04-09 19:45 | Emergency (ER) | payer MEDICARE, MEDICAID | END 2023-04-09 22:15 | disposition home or self-care (01) | LOC: JP.ED 19:45 | DX: H65.194 Other acute nonsuppurative otitis media, recurrent, right ear (principal); J01.01 Acute recurrent maxillary sinusitis; M25.571 Pain in right ankle and joints of right foot; Z91.048 Other nonmedicinal substance allergy status; Z88.5 Allergy status to narcotic agent; Z91.018 Allergy to other foods; Z86.16 Personal history of COVID-19 | CPT/HCPCS: 73610-RT; 99283 ==

== ENCOUNTER 2023-05-13 22:06 | Emergency (ER) | payer MEDICARE, MEDICAID | END 2023-05-14 00:36 | disposition home or self-care (01) | LOC: JP.ED 22:06 | DX: M79.675 Pain in left toe(s) (principal); E66.9 Obesity, unspecified; Z88.5 Allergy status to narcotic agent; Z91.048 Other nonmedicinal substance allergy status; Z88.8 Allergy status to other drugs, medicaments and biological substances; Z72.0 Tobacco use; Z68.31 Body mass index [BMI] 31.0-31.9, adult | CPT/HCPCS: 73630-26-LT; 73630-LT; 99283 ==